=== PATIENT | male | born 1945 | race Caucasian/White ===

== ENCOUNTER 2020-11-27 08:16 | Emergency (ER) | payer OTHER, MEDICARE ==
--- NOTE | 2020-11-27 08:42 | ER Document Report ---
ED Cardiac - General Chief Complaint: Chest Pain Stated Complaint: CHEST PAIN POSSIBLE BLOOD PRESSURE ISSUE Time Seen by Provider: 11/27/20 08:40 Primary Care Provider: ARPIT MIKE [NO STEVIE MD] - Follow up as needed Mode of Arrival: Ambulatory Information source: Patient Notes: 11/27/20 08:33 - Nursing Note by LENORA DREW Num: [id number] : 1945 Patient Age: 75 Pt arrives to triage ambulatory with a steady gait. Pt states that yesterday he started having intermittent center non-radiating chest pressure. Pt reports that yesterday his BP was elevated at around 180/90. Pt reports that when he takes a breath that it feels like "the breath isn't making it all the way down to my lungs" but he denies sob. Pt denies any other distress. pt is a&ox4 with e/u respirations. 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 He reports is more difficult to get a big breath. He had Covid infection back in June 2020. Patient reports he used to smoke but quit in the nineteen seventies. He began smoking when he was 8 years old. He also stopped drinking around the same time. Used to drink moonshine at that time. He began drinking when he was a teenager as well. Patient denies any fever chills cough cold diaphoresis nuchal rigidity cephalgia. She denies any constipation ruchi rrhea skin lesions. Patient reports she does not have high blood pressure but when he arrived he had hypertension. His daughter Milagro lives with him and works upstairs here at [place]. She is in room with him now. Patient is good historian and she appears to be good historian as well. Patient does not take any blood pressure medicines. Prior surgeries include a left hand cellulitis despite 7 months of antibiotics in 2011 requiring opening of his left wrist to get a culture of Proteus Mariana bilis.. Also patient had gallbladder resected around 16 years ago. TRAVEL OUTSIDE OF THE [place] IN LAST 30 DAYS: No - HPI Patient complains to provider of: Chest pain, Chest tightness. denies: Palpitations, Shortness of breath Use of: denies: Alcohol, Amphetamines, Bath salts, Caffeine, Cocaine, Decongestants Was the onset of pain: Sudden Chest pain location: Substernal Quality of pain: denies: Achy, Burning, Constriction, Cramping, Crushing, Dull, Heaviness, Incisional, Indigestion, Numbness, Pressure, Radiating, Sharp, Stabbing, Tearing, Throbbing, Tightness, Tingling Chest pain radiation location: denies: Left jaw, Left arm, Right jaw, Right arm, Right shoulder Severity now: None Severity at worst: Mild Pain level currently: 1 Chest pain precipitating factors: At Rest Cardiac risk factors: Hypertension Positive cardiac history: No Associated symptoms: Shortness of breath. denies: Abdominal pain, Anxiety, Cool extremities, Diaphoresis, Edema, Fatigue, Fever/chills, Headache, Hypotension, Jaw pain, Lightheaded, Nausea/vomiting, Neck pain, Palpitations, Rash Exacerbated by: Activity Relieved by: Rest Similar symptoms previously: No Recently seen / treated by doctor: No - Related Data Allergies/Adverse Reactions: No Known Allergies Allergy (Unverified 03/24/12 12:05) Past Medical History - General Information source: Patient - Social History Smoking Status: Former Smoker Cigarette use (# per day): No Chew tobacco use (# tins/day): No Smoking Education Provided: No Frequency of alcohol use: None Drug Abuse: None Lives with: Family Family History: Reviewed & Not Pertinent, Other Patient has suicidal ideation: No Patient has homicidal ideation: No Musculoskeletal Medical History: Reports Hx Arthritis Past Surgical History: Reports: Hx Cholecystectomy - Immunizations Hx Diphtheria, Pertussis, Tetanus Vaccination: Yes - 2008 Review of Systems - Review of Systems Constitutional: No symptoms reported EENT: No symptoms reported Cardiovascular: See HPI, Chest pain Respiratory: See HPI, Short of breath Gastrointestinal: No symptoms reported Genitourinary: No symptoms reported Male Genitourinary: No symptoms reported Musculoskeletal: No symptoms reported Skin: No symptoms reported Hematologic/Lymphatic: No symptoms reported Neurological/Psychological: No symptoms reported Physical Exam - Vital signs Vitals: Temp Pulse Resp BP Pulse Ox 97.7 F 55 L 16 175/87 H 99 11/27/20 08:36 11/27/20 08:36 11/27/20 08:36 11/27/20 08:36 11/27/20 08:36 Interpretation: Normal - General General appearance: Appears well, Alert - HEENT Head: Normocephalic, Atraumatic Eyes: Normal Pupils: PERRL - Respiratory Respiratory status: No respiratory distress Chest status: Nontender Breath sounds: Normal Chest palpation: Normal - Cardiovascular Rhythm: Regular Heart sounds: Normal auscultation Murmur: No - Abdominal Inspection: Normal Distension: No distension Bowel sounds: Normal Tenderness: Nontender Organomegaly: No organomegaly - Rectal Prostate: Other - deferred - Genitourinary Scrotum: Other - deferred - Back Back: Normal, Nontender - Extremities General upper extremity: Normal inspection, Nontender, Normal color, Normal ROM, Normal temperature General lower extremity: Normal inspection, Nontender, Normal color, Normal ROM, Normal temperature, Normal weight bearing. No: Suzi's sign - Neurological Neuro grossly intact: Yes Cognition: Normal Orientation: AAOx4 [place] Coma Scale Eye Opening: Spontaneous [place] Coma Scale Verbal: Oriented [place] Coma Scale Motor: Obeys Commands [place] Coma Scale Total: 15 Speech: Normal Motor strength normal: LUE, RUE, LLE, RLE Sensory: Normal - Psychological Associated symptoms: Normal affect, Normal mood - Skin Skin Temperature: Warm Skin Moisture: Dry Skin Color: Normal Course - Vital Signs Vital signs: Temp Pulse Resp BP Pulse Ox 97.7 F 55 L 19 158/88 H 99 11/27/20 08:36 11/27/20 08:36 11/27/20 12:34 11/27/20 12:34 11/27/20 12:34 - Laboratory Results Result Diagrams: 11/27/20 09:15 11/27/20 09:15 Laboratory Results Interpreted: 11/27/20 11/27/20 09:15 09:15 D-Dimer 0.87 H Potassium 5.1 H Carbon Dioxide 31 H Anion Gap 3 L Creatine Kinase 191 H Critical Laboratory Results Reviewed: Yes Attending or Supervising Physician who Reviewed Labs: JUDY HUSTON JR - Radiology Results Critical Radiology Results Reviewed: Yes Attending or Supervising Physician who Reviewed Radiology: JUDY HUSTON JR Critical Care Note - Critical Care Note Comments: I discussed findings with both patient and his daughter of both x-ray chest x- ray and CTA chest and also laboratory reports. Patient has elevated D-dimer and chest x-ray was read as negative here but is interstitial on my exam. Discharge - Discharge Clinical Impression: Pain, D-dimer, elevated, COVID-19 virus RNA test result unknown Hypertension Qualifiers: Hypertension type: unspecified Qualified Code(s): I10 - Essential (primary) hypertension Pneumonia Qualifiers: Pneumonia type: due to unspecified organism Laterality: right Lung location: lower lobe of lung Qualified Code(s): J18.9 - Pneumonia, unspecified organism Condition: Stable Disposition: HOME, SELF-CARE Instructions: Chest Wall Pain ([facility]) Additional Instructions: Follow-up with Dr. Jimenez alpine guide in [facility]. Call for appointment today. . Return to ER as needed take medicines as directed ;try to get blood pressure checks twice a day and write them on a calendar to present to your PMD. Prescriptions: Lisinopril/Hydrochlorothiazide [Lisinopril-Hctz 20-12.5 mg Tab] 1 each PO DAILY #30 tablet Azithromycin [Zithromax 250 mg Tablet] 250 mg PO ASDIR PRN #6 tablet PRN Reason: Referrals: LOCALMD,NO [NO LOCAL MD] - Follow up as needed
--- NOTE | 2020-11-27 09:41 | RADIOLOGY REPORT (SQ) ---
EXAM DESCRIPTION: CHEST SINGLE VIEW IMAGES COMPLETED DATE/TIME: 11/27/2020 8:02 am REASON FOR STUDY: chest pain . COMPARISON: None. EXAM PARAMETERS: NUMBER OF VIEWS: One view. TECHNIQUE: Single frontal radiographic view of the chest acquired. RADIATION DOSE: NA LIMITATIONS: None. FINDINGS: LUNGS AND PLEURA: Lungs are hyperinflated. No opacities, masses or pneumothorax. No pleur al effusion. MEDIASTINUM AND HILAR STRUCTURES: No masses. Contour normal. HEART AND VASCULAR STRUCTURES: Heart normal in size. Normal vasculature. BONES: No acute findings. HARDWARE: None in the chest. OTHER: No other significant finding. IMPRESSION: No acute cardiopulmonary disease. Hyperinflated lungs which can be seen with obstructiv e lung disease. TECHNICAL DOCUMENTATION: JOB ID: [id number] 2010 [employer]- All Rights Reserved Reading location - IP/workstation name: [email or web address]
[2020-11-27 09:42] LABS: ABSOLUTE EOSINOPHILS # (AUTO) 0.1 10^3/uL (0.0-0.6); ABSOLUTE MONOCYTES (AUTO) 0.6 10^3/uL (0.1-1.4); ABSOLUTE NEUT (AUTO) 2.9 10^3/uL (1.7-8.2); BASOPHILS % (AUTO) 0.3 % (0-2); EOSINOPHILS % (AUTO) 1.9 % (0-6); HEMATOCRIT 42.3 % (37.9-51.0); HEMOGLOBIN 14.5 g/dL (13.5-17.0); LYMPHOCYTES % (AUTO) 35.1 % (13-45); MEAN CORPUSCULAR HEMOGLOBIN 31.8 pg (27.0-33.4); MEAN CORPUSCULAR HGB CONC 34.3 g/dL (32.0-36.0); MEAN CORPUSCULAR VOLUME 93 fl (80-97); MONOCYTES % (AUTO) 11.1 % (3-13); PLATELET COUNT 320 10^3/uL (150-450); RED BLOOD COUNT 4.56 10^6/uL (4.35-5.55); RED CELL DISTRIBUTION WIDTH 13.8 % (11.5-14.0); SEGMENTED NEUTROPHILS % (AUTO) 51.6 % (42-78); TOTAL CELLS COUNTED % (AUTO) 100 %; WHITE BLOOD COUNT 5.7 10^3/uL (4.0-10.5)
[2020-11-27] MEDS ORDERED: AZITHROMYCIN INJ 500 MG VIAL IV ONE (09:42)
[2020-11-27] MEDS ORDERED: CEFTRIAXONE INJ 1000 MG VIAL IV ONE (09:42)
[2020-11-27] MEDS ORDERED: DEXAMETHASONE SOD PHOS INJ 10 MG/1 ML VIAL IV ONE (09:46)
[2020-11-27 10:01] LABS: ALBUMIN 4.3 g/dL (3.5-5.0); ALKALINE PHOSPHATASE 62 U/L (38-126); ASPARTATE AMINO TRANSFERASE 32 U/L (17-59); BILIRUBIN,DIRECT 0.2 mg/dL (0.0-0.4); BILIRUBIN,TOTAL 0.6 mg/dL (0.2-1.3); BLOOD UREA NITROGEN 16 mg/dL (7-20); CALCIUM 9.8 mg/dL (8.4-10.2); CREATINE KINASE 191 U/L (55-170); GLUCOSE 106 mg/dL (75-110); POTASSIUM 5.1 mmol/L (3.6-5.0); TOTAL PROTEIN 7.6 g/dL (6.3-8.2)
[2020-11-27 10:07] LABS: CARBON DIOXIDE 31 mmol/L (22-30); CHLORIDE 104 mmol/L (98-107)
[2020-11-27 10:08] LABS: ANION GAP 3 (5-19)
[2020-11-27 10:34] LABS: CREATINE KINASE MB 3.54 ng/mL (<4.55); NT PRO BNP 72 pg/mL (<450); TROPONIN I < 0.012 ng/mL
[2020-11-27] MEDS ORDERED: ONDANSETRON HCL INJ/PF 4 MG/2 ML SDV IV ONE ×2 (10:35→10:47)
--- NOTE | 2020-11-27 11:07 | RADIOLOGY REPORT (SQ) ---
EXAM DESCRIPTION: CTA CHEST IMAGES COMPLETED DATE/TIME: 11/27/2020 10:55 am REASON FOR STUDY: sob COMPARISON: None. TECHNIQUE: CT scan of the chest performed using helical scanning technique with dynamic intravenous contrast injection. Images reviewed with lung, soft tissue and bone windows. Reconstructed coronal and sagittal MPR images reviewed. Additional 3 dimensional post-processing performed to develop Maximal Intensity Projection images (WA P). All images stored on PACS. All CT scanners at this facility use dose modulation, iterative reconstruction, and/or weight based d osing when appropriate to reduce radiation dose to as low as reasonably achievable (ALARA). [facility]: Dose Right [facility]: CareDose [facility]: Dose Right [facility]: Teradose 4D [facility]: [employer] CONTRAST TYPE AND DOSE: contrast/concentration: Isovue 350.00 mmol/ml; Total Contrast Delivered: 64. 0 ml; Total Saline Delivered: 56.3 ml Contrast bolus optimized for the pulmonary arteries. Not diagnostic for the aorta. RENAL FUNCTION: BUN 16, creatinine 0.94 RADIATION DOSE: CT Rad equipment meets quality standard of care and radiation dose reduction techniq ues were employed. CTDIvol: 9.9 - 14.8 mGy. DLP: 560 mGy-cm. . LIMITATIONS: None. FINDINGS: LUNGS AND PLEURA: No masses, infiltrates, or pneumothorax. No pleural effusions or pleura l calcifications. AORTA AND GREAT VESSELS: Mild atherosclerotic change involving the thoracic arch. No dissection. No focal aneurysmal dilatation. HEART: No pericardial effusion. No significant coronary artery calcifications. PULMONARY ARTERIES: No emboli visualized in the main pulmonary arteries or the segmental branches. HILAR AND MEDIASTINAL STRUCTURES: No identified masses or abnormal nodes. HARDWARE: None in the chest. UPPER ABDOMEN: No significant findings. Limited exam. THYROID AND OTHER SOFT TISSUES: No masses. No adenopathy. BONES: No acute or significant finding. 3D MIPS: Confirm above findings. OTHER: No other significant finding. IMPRESSION: NORMAL CTA OF THE CHEST. NO PULMONARY EMBOLI. COMMENT: Quality ID # [id number]: Final reports with documentation of one or more dose reduction techniques (e.g., Automated exposure control, adjustment of the mA and/or kV according to patient size, use of iterative reconstruction technique) TECHNICAL DOCUMENTATION: JOB ID: [id number] 2010 [employer]- All Rights Reserved Reading location - IP/workstation name: [email or web address]
[2020-11-27] MEDS ORDERED: CLONIDINE HCL 0.1 MG TABLET PO ONE (11:30)
[2020-11-27 12:43] VITALS: BP 158/88
--- NOTE | 2020-11-27 13:23 | EKG REPORT ---
SEVERITY:- ABNORMAL ECG - SINUS RHYTHM FIRST DEGREE AV BLOCK LEFT ANTERIOR FASCICULAR BLOCK PROBABLE LEFT VENTRICULAR HYPERTROPHY : Confirmed by: Geovanny Crawley MD 27-Nov-2020 13:22:54
== END 2020-11-27 12:58 | disposition home or self-care (01) ==
LOC: ER 08:16
DX: J18.9 Pneumonia, unspecified organism (principal); I10 Essential (primary) hypertension; R07.89 Other chest pain; R06.02 Shortness of breath; R79.89 Other specified abnormal findings of blood chemistry; Z86.16 Personal history of COVID-19; Z87.891 Personal history of nicotine dependence; Z20.822 Contact with and (suspected) exposure to COVID-19
CPT/HCPCS: 93005; 99285; 96375; 96365; 96366; 96368; 36415; 87040; 82553; 82550; 85025; 0202U; 80053; 84484; 85379; 83880; 71045; 71275; 93010; J0696; J2405; J0456; J1100